=== PATIENT | male | born 1965 | race Two or more races ===

== ENCOUNTER 2022-05-29 17:14 | Emergency (ER) | payer BC ==
[2022-05-29] MEDS ORDERED: HYDROmorphone 1 MG/ML Syringe IM ONE (17:53)
== END 2022-05-29 18:17 | disposition home or self-care (01) ==
LOC: MW.ED 17:14
DX: M54.32 Sciatica, left side (principal); Z79.899 Other long term (current) drug therapy
CPT/HCPCS: 96372; 99283; J1170